=== PATIENT | male | born 1995 | race Caucasian/White ===

== ENCOUNTER 2017-10-18 07:26 | Day surgery (SDC) | payer OTHER ==
[~2017-10-18] VITALS: Ht 177.8 cm; Wt 103.0 kg
[~2017-10-18 07:26] MED LIST: CELEBREX200 MG PO
--- NOTE | 2017-10-18 09:06 | NUR ---
10/18/17 0906 Dari Jean 0850 PT ARRIVED ASLEEP AND SNORING. VSS ON 3L NC. 0903 PT WOKE UP TO STIMULI AND NC WAS REMOVED, O2 SAT 100%. PT SITTING IN HIGH FOWLERS. REORIENTED TO PACU. 09 PT BACK TO SLEEP.
--- NOTE | 2017-10-18 10:36 | NUR ---
ICED WATER GIVEN. CALL LIGHT W/IN REACH. GRANDPARENTS @ BS.
--- NOTE | 2017-10-18 11:16 | NUR ---
PT EATS CRACKERS AND TOLERATES THOSE WELL. DC INSTRUCTIONS GIVEN IN PRESENCE OF GRANDPARENTS AND ALL VERBALIZE UNDERSTANDING. PT GETTING DRESSED IN PRESENCE OF HIS GRANDFATHER AND IS DC HOME VIA WC PUSHED BY VOLUNTEER.
--- NOTE | 2017-10-19 08:21 | OR ---
[facility] [address], [place] [address] Signed DATE OF OPERATION: 10/18/2017 SURGEON: Indy Aburto MD PREOPERATIVE DIAGNOSES: 1. Small intestine polyp with intussusception requiring a partial right colectomy with [id number] stapled anastomosis. 2. Personal history of colonic polyps. 3. Paternal grandmother with stage IV colon cancer. 4. Lower abdominal pain, constipation, nausea, and intermittent rectal bleeding. 5. Father with colonic polyps. POSTOPERATIVE DIAGNOSIS: Unremarkable colonoscopy. PROCEDURE: Colonoscopy without biopsy. ESTIMATED BLOOD LOSS: None. INDICATIONS: Sony is a 22-year-old gentleman I saw in 2011 for upper and lower endoscopy. He had weight loss, anorexia, early satiety, generalized abdominal pain, constipation, and diarrhea. At that time, we found a little bit of gastritis and his colonoscopy was unremarkable. He finished high school, went into the in [place], [place]. He developed intussusception and required a partial right colectomy with a [id number] stapled anastomosis performed. He had 2 feet of terminal ileum removed and about a foot of his right colon removed. He had a polyp the size of a golf ball in the small intestine. He said he has had another colonoscopy afterwards and had polyps removed from his colon. In addition, his paternal grandmother developed stage IV colon cancer. He said I took polyps out of his father as well. More recently, he has had some lower abdominal pain, constipation, nausea, and some rectal bleeding. Obviously, he was concerned, and so he was asked to see me by his primary care provider for a followup colonoscopy. In the office, I gave Sony a pamphlet on colonoscopy. We looked at that together along with the risks including, but not limited to gas bloating, crampy abdominal pain, bleeding, perforation, requiring surgery, and missed diagnosis. We also discussed the need for IV conscious sedation. He had expressed understanding and wished to proceed. Electronically Signed By: INDY ABURTO MD 10/19/17 0821 PATIENT NAME: SONY CONTRERAS S OPERATIVE REPORT DATE OF : [birth year] REPORT #: [id number] PHYSICIAN: INDY ABURTO MD PCP: Haritha MEJÍA MD REPORT IS CONFIDENTIAL AND NOT TO BE RELEASED WITHOUT AUTHORIZATION [facility] [address], [place] [address] Signed PROCEDURE NOTE: Sony was taken into our endoscopy suite and placed in the left lateral decubitus position. He received divided doses of 7 mg of Versed and 175 mcg of fentanyl. A digital rectal exam was performed, and this was unremarkable. The adult colonoscope was introduced and advanced quite readily up into the area of anastomosis at 100 cm. He had a [id number] anastomosis. It was well healed. Both the terminal ileum and the colon appeared quite healthy. The scope was then slowly withdrawn. His prep was good. We saw no pathology throughout the remainder of the colon or rectum. Upon retroflexion of the scope, there was no additional pathology noted above the anal canal. After this, the gas was suctioned out. The colonoscope removed. Sony tolerated the procedure quite well. RECOMMENDATIONS: Sony might consider returning in 5 years for repeat colonoscopy if indeed he had adenomatous polyps himself. Otherwise, he could wait longer. He could subtract 10 years from the youngest person in his family and/or age 50 and come at that time. Indy Aburto MD ALB/MODL /[id number] cc: MD Indy Feliz MD Copies: INDY ABURTO MD ~ Electronically Signed By: INDY ABURTO MD 10/19/17 0821 PATIENT NAME: SONY CONTRERAS OPERATIVE REPORT DATE OF : [birth year] REPORT #: [id number] PHYSICIAN: INDY ABURTO MD PCP: Haritha MEJÍA MD REPORT IS CONFIDENTIAL AND NOT TO BE RELEASED WITHOUT AUTHORIZATION
== END 2017-10-18 11:20 | disposition home or self-care (01) ==
LOC: OPS 07:26 → DS 07:26 → OPS 09:45
PROVIDERS: Colon & Rectal Surgery
PROC: 0DJD8ZZ Inspection of Lower Intestinal Tract, Via Natural or Artificial Opening Endoscopic (ICD-10-PCS; principal; 2017-10-18 09:45)
DX: K62.5 Hemorrhage of anus and rectum (principal); K59.00 Constipation, unspecified; J45.50 Severe persistent asthma, uncomplicated; Z98.890 Other specified postprocedural states; Z90.49 Acquired absence of other specified parts of digestive tract; Z86.010 Personal history of colon polyps; Z88.1 Allergy status to other antibiotic agents; Z88.5 Allergy status to narcotic agent
CPT/HCPCS: 99153; G0500; J2250; J2405; J3010; J7120